=== PATIENT | female | born 1995 | race African-American/Black ===

== ENCOUNTER 2021-05-07 00:12 | Emergency (ER) | payer OTHER, SELFPAY ==
[2021-05-07 00:35] VITALS: BP 114/60; PULSE 90; RESP 16; TEMP 36.3; O2SAT 100; BMI 19.0
--- NOTE | 2021-05-07 04:53 | PC.NURSE ---
pt asked registration and charge nurse twice when she will be seen by provider. this nurse informed her that the doctor would see her as soon as possible but he has to see the most acute pts first. pt now stating that she wants to leave. has not been seen by provider yet. charge nurse aware
== END 2021-05-07 04:57 | disposition left against medical advice (07) ==
PROVIDERS: Emergency Provider Emergency Medicine
DX: M25.552 Pain in left hip (principal)
CPT/HCPCS: 99281; 99283

== ENCOUNTER 2021-09-23 19:32 | Inpatient (IN) | payer OTHER, SELFPAY ==
[2021-09-23 20:05] VITALS: BMI 17.2
[2021-09-23 20:20] VITALS: BP 134/87; PULSE 92; TEMP 36.8; O2SAT 97
--- NOTE | 2021-09-23 21:05 | P.HPPS_ITS ---
HPI Date of Service: 09/23/21 Chief Complaint: F41.1 Sources of Information: patient interviewed, chart reviewed and crisis/core team assessment reviewed HPI Subjective Notes: Romero Warning and Conditional Voluntary Healthcare Proxy: No Guardianship: No Medical Problems Affecting Mental Status: No Narrative: Pt is a 26 y.o. Female who does not have a previous psych history and presented to [facility] on 09/21/21 due to decompensation in self care, AH, and hyposomnia. Sh e refused CBC and CMP. Her urine preg and Covid screen were negative. Urine tox was negative for cocaine and opiates.? Per [facility] crisis eval, pt was found yelling and pacing. She reported being concern ed about her family touching her belongings and yelled to her family get out of my house. ? I evaluated the pt this evening and upon interview she reports she is in the hospital because her mother ?My mother made some statements that are completely false.? Says that she has had recent stressors of a close family friend/ father figure passing away, ?that took a toll on me,? and says she has been ?having issues at my job, im in the middle of leaving my job and trying to get into another job.? She signed a CV but says she doesnt think she needs to be here, ?I want to be working towards a new job.? She is perseverative about the location of her car and says that her mom took her car 3 days ago and she wants it back, plans to ?file a defamation suit? against her. Per pt, her mother has made false statements about her because she wants to keep her car, ?its all I can think of.? States her sleep has been ?all over the place,? attributes this to working nights, estimates she gets a total of 6 hours but that it is broken up throughout the day. Denies nightmares or flashbacks. Appetite has been low. Pt denies agitation or depression. Says she is ?Just trying to get through and pay my bills.? Denies A/VH. Denies SI/SIB/HI and says she feels safe. I spoke with pt?s mother, Reina. She reports pt ?had a breakdown? and has been self-dialoguing, talking to herself. Per pt?s mother, her aunt and uncle have also noticed pt has been behaving bizarrely, ?not making sense.? She also heard from pt?s hse manager, who reported to her that 2 weeks ago pt was talking to herself, ?speaking erratically,? and when her hse manager asked her about this, pt told her she was hearing voices and that they were ?telling me to do something to you but i?m not gonna do it.? Mom decided to call crisis and police had to force pt out. Per mom, pt has been ?very hyper, manic, non-stop talking? and she has not been cleaning her room, eating or sleeping, ?I know she?s been up for days.? Mom reports that in 2017, pt had a similar episode of being ?extremely agitated? and ?upset,? insisted her mom take her to the hospital twice for an abrasion in her mouth, as ?she was concerned it was something major,? however says her symptoms were less severe and ?not so obvious like this situation.? Mom is unsure about pt?s social functioning, as she says ?she doesnt talk about her personal life anymore.? Mom states she has seen pt ?become sad? and ?ruddy seen her become anxious.? She has been isolating and ?wanting to be off by herself? and ?hiding from the family.? Mom denies that pt has been aggressive or violent and she is ?normally a very kind, gentle, sweet person.?? Lastly, mom reports pt called and texted her phone over 200 times because she wants her car back, however mom took it because she ?wasn?t safe to be out driving.?? Past Psychiatric History: -Per chart, pt had a similar episode in 2017 with pressured speech and agitation, however less severe. -Denies hx of past psych med trials, no OP psych services. Medical Evaluation Reviewed: Yes [facility] Family History: -M Uncle: diagnosed with schizophrenia Social History: -Pt lives in a house owned by her M aunt, who lives on the 1st floor. Pt lives on the third floor and shares the space with her M uncle. -Works as a residential counselor at [employer] Substance History: -Cannabis: 3 x a week Trauma History: -Recent loss of a family friend Diagnostics Vital Signs (24Hr): Vital Signs - 24 hr 09/23/21 20:20 Temperature 98.2 F Pulse Rate 92 Blood Pressure 134/87 Pulse Oximetry 97 BMI result Body Mass Index 17.2 Labs Results: 09/24/21 07:01 09/24/21 07:01 Meds/Allergies Meds Home Medications Acetaminophen (Acetaminophen 325 Mg Tablet) 650 mg PO Q6H PRN PRN Reason: Headache/Pain Mild Scale (1-3) Al Hydroxide/Mg Hydroxide (Magnesium Hydrox/Alum Hydrox 30 Ml Oral.Susp) 30 ml PO Q6H PRN PRN Reason: Heartburn/Nausea Albuterol Sulfate (Albuterol Sulfate 90 Mcg 8 Gm Inhaler) 2 puff INHALE Q4H PRN PRN Reason: dyspnea Hydroxyzine HCl (Hydroxyzine Hcl 25 Mg Tablet) 25 mg PO Q6H PRN PRN Reason: Anxiety Magnesium Hydroxide (Milk Of Magnesia 30 Ml Oral.Susp) 30 ml PO DAILY PRN PRN Reason: Constipation Olanzapine (Olanzapine 5 Mg Tablet) 5 mg PO Q6H PRN PRN Reason: agitation, psychosis Trazodone HCl (Trazodone Hcl 50 Mg Tablet) 50 mg PO BEDTIME PRN PRN Reason: Insomnia Allergies Allergies Allergy/AdvReac Type Severity Reaction Status Date / Time No Known Allergies Allergy Verified 05/07/21 00:35 Mental Status Exam Mental Status Exam Narrative: A&O except to situation. Unkempt, disheveled appearance, in hospital attire. Poor eye contact, inattentive. No Tics or Tremors. No abnormal involuntary movements. Calm, however guarded and difficult to engage. Speech is somewhat pressured, spontaneous with regular rate and rhythm, normal volume and prosody. No prolonged speech latency or dysarthria. Mood is ?good,? affect is anxious, incongruent. Denies SI/SIB/HI upon inquiry. Denies A/VH. Endorses paranoid d elusional thought content. Thoughts are perseverative on her car, nonlinear. No known cognitive or memory impairment. Insight/ Judgment poor. Assessment & Plan Assessment & Plan (1) Bipolar 1 disorder, manic, moderate: Status: Acute Code(s): F31.12 - Bipolar disorder, current episode manic without psychotic features, moderate Plan Pt is a 26 y.o. Female who does not have a previous psych history and presented to [facility] on 09/21/21 due to decompensation in self care, AH, and hyposomnia. Provisional diagnosis of bipolar I disorder, manic episode, however differential dx of schizoaffective do must be considered, as pt has been decompensating x a few weeks and has been isolating, asocial, and responding to internal stimuli. No previous psych treatment. Plan: Discussed starting a medication for anxiety, agitation, and paranoia, considering atypical agent- however pt says ?I would rather not.? She is adamant that she does not want a medication trial. Per pt?s mother, pt at baseline is med averse and is careful about what she consumes, has been a vegan for a few years.? Monitor response to medications. Monitor for safety in the milieu. Discharge on stabilization. Patient seen. Chart reviewed. Discussed with team. Obtain collateral contact info?as needed Reason for continued inpatient stay Substantial Risk for: rapid decompensation and med/psych decompensation
--- NOTE | 2021-09-23 23:21 | PC.ADMIT ---
THIS IS THE FIRST [facility] ADMISSION FOR THIS 26 YEAR OLD FEMALE. LEGAL: CV. DX: ALBERT. WAS REFERRED TO M3 BY [facility] VIA [facility]. NURSE TO NURSE AND COLLATERAL INFORMATION OBTAINED PRIOR TO ADMISSION. PATIENT SIGNED CV THEN REQUEST 3 DAY NOTICE. PATIENT DENIES NEED FOR HOSPITALIZATION BUT PRESENTS WITH BEHAVIORS OF AVOIDANCE AND WALKING AROUND STAFF AND PEERS USING A WIDE OF SPACE, FIDGETING AT JOHNNIES TOP AND CLOTHING, STUTTERING AND REPETITIVE SPEECH PATTERN. DENIES SI/HI AND STATES ''I'M HERE BECAUSE MY MOTHER MISS INTERPRETED ME'' DOES REPORT POOR SLEEP AND DIET AND MINIMIZES THIS. ''I CAN SLEEP 4-5 HOURS'' DOES REPORT WEIGHING SELF ''AT WORK REGULARLY'' ARMENDARIZ - BUT ENDORSED USING ''MAYBE EDIBLES'' ''I TAKE HEMP PILLS'' NO SIGNIFICANT MEDICAL ISSUES BUT REPORTS S/P COVID IN WHICH SHE HAD AN INHALER ORDERED FOR HER. CURRENT COVID -. REPORTS + PCP THROUGH [facility] BUT NOT PSYCH PROVIDERS. ORIENTED TO UNIT. SAFETY TOOL COMPLETED. TX PLAN INITIATED.
[2021-09-24 07:14] LABS: MANUAL DIFF FLAG NO
[2021-09-24 07:20] LABS: Basophils Absolute Auto 0.1 X10*3/uL (0.0-0.2); Basophils Percent Auto 1.1 % (0-2); Eosinophils Absolute Auto 0.1 X10*3/uL (0.0-0.4); Eosinophils Percent Auto 1.6 % (0-4); Hematocrit 40.1 % (37.0-47.0); Hemoglobin 13.7 g/dl (12.0-16.0); Imm Gran Abs Auto 0.01 X10*3/uL (0.00-0.03); Imm Gran Pct Auto 0.2 % (0.0-0.4); Lymphocytes Absolute Auto 2.2 X10*3/uL (1.2-4.9); Lymphocytes Percent Auto 39.9 % (20-40); Mean Corpuscular HGB Conc 34.2 g/dl (31.0-35.0); Mean Corpuscular Hemoglobin 28.3 pg (27.0-33.0); Mean Corpuscular Volume 82.9 fL (80.0-98.0); Mean Platelet Volume 9.9 fL (9.4-12.3); Monocytes Absolute Auto 0.5 X10*3/uL (0.1-1.2); Monocytes Percent Auto 9.8 % (2-11); Neutrophils Absolute Auto 2.6 x10*3/uL (2.0-8.3); Neutrophils Percent Auto 47.4 % (45-73); Platelet Count 326 X10*3/uL (160-400); Red Blood Count 4.84 X10*6/uL (4.20-5.50); Red Cell Distribution Width 12.5 % (11.0-16.0); White Blood Count 5.5 X10*3/uL (4.8-10.8)
[2021-09-24 08:04] LABS: Alanine Aminotransferase 8 U/L (0-31); Albumin Level 4.5 g/dL (3.5-5.0); Alkaline Phosphatase 39 U/L (39-117); Anion Gap 13 (12-20); Aspartate Amino Transferase 15 U/L (5-31); Bilirubin Total 0.3 mg/dL (0.0-1.0); Blood Urea Nitrogen 7 mg/dL (9-16); Calcium 9.5 mg/dL (8.4-10.2); Carbon Dioxide 24 mmol/L (22-29); Chloride 105 mmol/L (96-108); Cholesterol 147 mg/dL; Creatinine Clr Calc Pharmacy 85.7; Estimated Glomerular Filt Rate > 60; Glucose Fasting 76 mg/dL (60-99); HDL Cholesterol 50 mg/dL; LDL Cholesterol Calculated 79 mg/dl; Magnesium 2.3 mg/dL (1.6-2.6); Potassium 4.1 mmol/L (3.3-5.1); Sodium 138 mmol/L (135-145); Total Protein 7.2 g/dL (6.5-8.0); Triglycerides 90 mg/dL
[2021-09-24 08:14] LABS: Free T4 (Free Thyroxine) 1.01 ng/dL (0.71-1.85); Thyroid Stimulating Hormone 1.67 uIU/mL (0.32-4.0)
[2021-09-24 08:28] LABS: Estimated Average Glucose 100 mg/dL; Hemoglobin A1c % 5.1 %
[2021-09-24 10:01] VITALS: BP 114/78; PULSE 117; RESP 18; TEMP 36.6; O2SAT 98
--- NOTE | 2021-09-24 16:22 | HO.PSYCHPN ---
Subjective Subjective Date of Service: 09/24/21 Reason For Visit: F41.1 Interim History: Patient seen. Discussed in team. Patient reports she is here because my mother fabricated a story about me that is not true. She wanted my car. She has mental health issues. Patient presents as paranoid. She is pressured and irritable although not loud or aggressive. She says she doesn't want medications. Denies A/VH. Denies SI/SIB/HI and says she feels safe. Review of Systems Acute medical concerns: No Review of Systems Review of Systems CVS: No c/o chest pain, palpitations, no SOB TRANSPORTATION WORKER: No c/o dizziness, headache GI: No c/o Nausea, Vomiting, diarrhea, constipation or heartburn Mental Status Exam Mental Status Exam Narrative: A&O except to situation. Unkempt, disheveled appearance, in hospital attire. Poor eye contact, inattentive. No Tics or Tremors. No abnormal involuntary movements. Calm, however guarded and difficult to engage. Speech is somewhat pressured, spontaneous, normal volume and prosody. No prolonged speech latency or dysarthria. Mood is ?good,? affect is anxious, incongruent. Denies SI/SIB/HI upon inquiry. Denies A/VH. Endorses paranoid delusional thought content. Thoughts are perseverative on her car, nonlinear. No known cognitive or memory impairment. Insight/ Judgment poor. Diagnostics Vital Signs (24Hr): Vital Signs - 24 hr 09/24/21 10:01 09/24/21 20:26 Temperature 97.9 F 97.7 F Pulse Rate 117 H 83 Respiratory Rate 18 Blood Pressure 114/78 132/69 Pulse Oximetry 98 98 BMI result Body Mass Index 17.2 Labs Results: 09/24/21 07:01 09/24/21 07:01 Labs: Laboratory Results - last 48 hr 09/24/21 09/24/21 09/24/21 07:01 07:01 07:01 WBC 5.5 RBC 4.84 Hgb 13.7 Hct 40.1 MCV 82.9 MCH 28.3 MCHC 34.2 RDW 12.5 Plt Count 326 MPV 9.9 Immature Gran % (Auto) 0.2 Neut % (Auto) 47.4 Lymph % (Auto) 39.9 [place] % (Auto) 9.8 Eos % (Auto) 1.6 Baso % (Auto) 1.1 Lymph # (Auto) 2.2 [place] # (Auto) 0.5 Eos # (Auto) 0.1 Baso # (Auto) 0.1 Abs Immat Gran (auto) 0.01 Absolute Neuts (auto) 2.6 Absolute Nucleated RBC 0.000 Nucleated RBC % (auto) 0.0 Sodium 138 Potassium 4.1 Chloride 105 Carbon Dioxide 24 Anion Gap 13 BUN 7 L Creatinine 0.80 Estim Creat Clear Calc 85.7 Estimated GFR > 60 Fasting Glucose 76 Estimat Average Glucose 100 Hemoglobin A1c % 5.1 Calcium 9.5 Magnesium 2.3 Total Bilirubin 0.3 AST 15 ALT 8 Alkaline Phosphatase 39 Total Protein 7.2 Albumin 4.5 Triglycerides 90 Cholesterol 147 LDL Cholesterol, Calc 79 HDL Cholesterol 50 TSH 1.67 Free T4 1.01 Medications Medications Current Medications Acetaminophen (Acetaminophen 325 Mg Tablet) 650 mg PO Q6H PRN PRN Reason: Headache/Pain Mild Scale (1-3) Al Hydroxide/Mg Hydroxide (Magnesium Hydrox/Alum Hydrox 30 Ml Oral.Susp) 30 ml PO Q6H PRN PRN Reason: Heartburn/Nausea Albuterol Sulfate (Albuterol Sulfate 90 Mcg 8 Gm Inhaler) 2 puff INHALE Q4H PRN PRN Reason: dyspnea Hydroxyzine HCl (Hydroxyzine Hcl 25 Mg Tablet) 25 mg PO Q6H PRN PRN Reason: Anxiety Magnesium Hydroxide (Milk Of Magnesia 30 Ml Oral.Susp) 30 ml PO DAILY PRN PRN Reason: Constipation Olanzapine (Olanzapine 5 Mg Tablet) 5 mg PO Q6H PRN PRN Reason: agitation, psychosis Trazodone HCl (Trazodone Hcl 50 Mg Tablet) 50 mg PO BEDTIME PRN PRN Reason: Insomnia Allergies Allergies Allergy/AdvReac Type Severity Reaction Status Date / Time No Known Allergies Allergy Verified 05/07/21 00:35 Assessment & Plan Assessment & Plan (1) Bipolar 1 disorder, manic, moderate: Status: Acute Code(s): F31.12 - Bipolar disorder, current episode manic without psychotic features, moderate Plan Pt is a 26 y.o. Female who does not have a previous psych history and presented to [facility] on 09/21/21 due to decompensation in self care, AH, and hyposomnia. Provisional diagnosis of bipolar I disorder, manic episode, however differential dx of schizoaffective do must be considered, as pt has been decompensating x a few weeks and has been isolating, asocial, and responding to internal stimuli. No previous psych treatment. Plan: Discussed starting a medication for anxiety, agitation, and paranoia, considering atypical agent- however pt says ?I would rather not.? She is adamant that she does not want a medication trial. Per pt?s mother, pt at baseline is med averse and is careful about what she consumes, has been a vegan for a few years.? Monitor response to medications. Monitor for safety in the milieu. Discharge on stabilization. Patient seen. Chart reviewed. Discussed with team. Obtain collateral contact info?as needed 09/24/21: Refuses any medication interventions. I spent minutes with the patient and/or on the patient floor today, greater than?50% of which was spent counseling/coordinating care. Reason for contiued inpatient stay Substantial Risk for: inability to function and rapid decompensation
[2021-09-24 20:26] VITALS: BP 132/69; PULSE 83; TEMP 36.5; O2SAT 98
[2021-09-25 09:40] VITALS: BP 107/69; PULSE 91; RESP 18; TEMP 36.5; O2SAT 99
--- NOTE | 2021-09-25 13:03 | P.CNHOSGPS_ITS ---
History of Present Illness Data of Consult Service Date: 09/25/21 Requesting physician: Yoselin Delatorre Primary Care Provider: Unknown Physician HPI Routine medical H+ p for psych admission. No focal medical complaints save mild ezcema of palms Review of Systems Review of Systems: Denies CP Denies SOB Dwnies N/V/D Yes all other systems are reviewed and are negative PMFSH Social History Household Members: Family Household Members Other:: lives with aunt Housing: House Do you presently have visiting nurse or other home services: No Patient Tobacco Use Status: Never used Tobacco e-Cigarette/Vaping Use: Never Used Use of substances other than those prescribed or required for medical reasons: Yes Substance Use Type: Marijuana Substance Use Frequency: Occasionally Last Used Substance: Days (ago) Currently Displaying Signs/Symptoms of Drug Intoxication Withdrawal: No Any prior treatment program specific to substance use: No Have you been hit, kicked, punched, or otherwise hurt by someone within the past year? If so, by whom?: No Do you feel safe in your current relationship?: No Current Relationship Is there a partner from a previous relationship who is making you feel unsafe now?: No Are you made to feel afraid or neglected: No Spiritual Healthcare Practices: none identified Worship Healthcare Practices: none identified Cultural Healthcare Practices: none identfied Advance Directives: No Advance Directives Information Provided: No Do you have thoughts of harming others: None Do you have a plan to hurt others: No Plan Recently lost weight without trying: Yes How much weight loss: 2-13 pounds Eating poorly because of decreased appetite: Yes Nutrition screen score: 4 Nutrition Risks: No Nutritional Risk Patient : No : No Poor oral hygiene: No service: No Sexual orientation: Straight/Heterosexual Meds Allergies Allergy/AdvReac Type Severity Reaction Status Date / Time No Known Allergies Allergy Verified 05/07/21 00:35 Active Medications: Current Medications Acetaminophen (Acetaminophen 325 Mg Tablet) 650 mg PO Q6H PRN PRN Reason: Headache/Pain Mild Scale (1-3) Al Hydroxide/Mg Hydroxide (Magnesium Hydrox/Alum Hydrox 30 Ml Oral.Susp) 30 ml PO Q6H PRN PRN Reason: Heartburn/Nausea Albuterol Sulfate (Albuterol Sulfate 90 Mcg 8 Gm Inhaler) 2 puff INHALE Q4H PRN PRN Reason: dyspnea Hydroxyzine HCl (Hydroxyzine Hcl 25 Mg Tablet) 25 mg PO Q6H PRN PRN Reason: Anxiety Magnesium Hydroxide (Milk Of Magnesia 30 Ml Oral.Susp) 30 ml PO DAILY PRN PRN Reason: Constipation Olanzapine (Olanzapine 5 Mg Tablet) 5 mg PO Q6H PRN PRN Reason: agitation, psychosis Trazodone HCl (Trazodone Hcl 50 Mg Tablet) 50 mg PO BEDTIME PRN PRN Reason: Insomnia Home Medications Medication Instructions Recorded Confirmed Last Taken Type albuterol sulfate 90 mcg/actuation 2 puff INHALATION Q4H PRN 09/23/21 09/23/21 Unknown History aerosol inhaler (ProAir HFA) Results Labs CBC and Chem 7: 09/24/21 07:01 09/24/21 07:01 Assessment and Plan (1) Bipolar 1 disorder, manic, moderate: Status: Acute Plan Routine non-focal medical exam. No acute issues. Will order Diprolene ointment for palms BID prn. Please call if needed Physical Exam Vital Signs: Last Vital Signs Temp 97.7 F 09/25/21 09:40 Pulse 91 09/25/21 09:40 Resp 18 09/25/21 09:40 BP 107/69 09/25/21 09:40 Pulse Ox 99 09/25/21 09:40 BMI result Body Mass Index 17.2 Const General: cooperative and no acute distress Resp Effort & Inspection: normal respiratory effort Auscultation: clear to auscultation bilaterally, no crackles, no rales and no rhonchi Cardio Rate: regular rate Rhythm: regular rhythm Heart sounds: S1 normal heart sound present, S2 normal heart sound present and no murmurs GI Inspection: Yes normal to inspection Palpation (GI): Soft to palpation and nontender Auscultation: normal bowel sounds Neuro Cranial nerves: Yes CN's II-XII intact bilaterally Gait exam (Neuro): Normal gait present Motor exam (neuro): 5/5 motor strength present throughout Extrem General: Yes normal to inspection
--- NOTE | 2021-09-25 14:04 | P.PNPSI_ITS ---
Subjective Subjective Date of Service: 09/25/21 Reason For Visit: F41.1 Interim History: Patient seen. Discussed in team. Seen in the sensory room with the lights out eating lunch by herself. She had her back to the door. She reported she feels OK and that she slept well last night. She denies AH. Appears paranoid and preoccupied. She says she doesn't want medications. Denies A/VH. Denies SI/SIB/HI and says she feels safe. Review of Systems Review of Systems CVS: No c/o chest pain, palpitations, no SOB EARLY CHILDHOOD SPECIAL EDUCATOR: No c/o dizziness, headache GI: No c/o Nausea, Vomiting, diarrhea, constipation or heartburn Mental Status Exam Mental Status Exam Narrative: A&O except to situation. Unkempt, disheveled appearance, in hospital attire. Poor eye contact, inattentive. No Tics or Tremors. No abnormal involuntary movem ents. Calm, however guarded and difficult to engage. Speech is somewhat pressured, spontaneous, normal volume and prosody. No prolonged speech latency or dysarthria. Mood is ?good,? affect is anxious, incongruent. Denies SI/SIB/HI upon inquiry. Denies A/VH. Paranoid. Thoughts are perseverative on her car, nonlinear. No known cognitive or memory impairment. Insight/ Judgment poor. Diagnostics Vital Signs (24Hr): Vital Signs - 24 hr 09/24/21 20:26 09/25/21 09:40 Temperature 97.7 F 97.7 F Pulse Rate 83 91 Respiratory Rate 18 Blood Pressure 132/69 107/69 Pulse Oximetry 98 99 BMI result Body Mass Index 17.2 Labs Results: 09/24/21 07:01 09/24/21 07:01 Labs: Laboratory Results - last 48 hr 09/24/21 09/24/21 09/24/21 07:01 07:01 07:01 WBC 5.5 RBC 4.84 Hgb 13.7 Hct 40.1 MCV 82.9 MCH 28.3 MCHC 34.2 RDW 12.5 Plt Count 326 MPV 9.9 Immature Gran % (Auto) 0.2 Neut % (Auto) 47.4 Lymph % (Auto) 39.9 [place] % (Auto) 9.8 Eos % (Auto) 1.6 Baso % (Auto) 1.1 Lymph # (Auto) 2.2 [place] # (Auto) 0.5 Eos # (Auto) 0.1 Baso # (Auto) 0.1 Abs Immat Gran (auto) 0.01 Absolute Neuts (auto) 2.6 Absolute Nucleated RBC 0.000 Nucleated RBC % (auto) 0.0 Sodium 138 Potassium 4.1 Chloride 105 Carbon Dioxide 24 Anion Gap 13 BUN 7 L Creatinine 0.80 Estim Creat Clear Calc 85.7 Estimated GFR > 60 Fasting Glucose 76 Estimat Average Glucose 100 Hemoglobin A1c % 5.1 Calcium 9.5 Magnesium 2.3 Total Bilirubin 0.3 AST 15 ALT 8 Alkaline Phosphatase 39 Total Protein 7.2 Albumin 4.5 Triglycerides 90 Cholesterol 147 LDL Cholesterol, Calc 79 HDL Cholesterol 50 TSH 1.67 Free T4 1.01 Medications Medications Current Medications Acetaminophen (Acetaminophen 325 Mg Tablet) 650 mg PO Q6H PRN PRN Reason: Headache/Pain Mild Scale (1-3) Al Hydroxide/Mg Hydroxide (Magnesium Hydrox/Alum Hydrox 30 Ml Oral.Susp) 30 ml PO Q6H PRN PRN Reason: Heartburn/Nausea Albuterol Sulfate (Albuterol Sulfate 90 Mcg 8 Gm Inhaler) 2 puff INHALE Q4H PRN PRN Reason: dyspnea Hydroxyzine HCl (Hydroxyzine Hcl 25 Mg Tablet) 25 mg PO Q6H PRN PRN Reason: Anxiety Magnesium Hydroxide (Milk Of Magnesia 30 Ml Oral.Susp) 30 ml PO DAILY PRN PRN Reason: Constipation Olanzapine (Olanzapine 5 Mg Tablet) 5 mg PO Q6H PRN PRN Reason: agitation, psychosis Trazodone HCl (Trazodone Hcl 50 Mg Tablet) 50 mg PO BEDTIME PRN PRN Reason: Insomnia Allergies Allergies Allergy/AdvReac Type Severity Reaction Status Date / Time No Known Allergies Allergy Verified 05/07/21 00:35 Assessment & Plan Assessment & Plan (1) Bipolar 1 disorder, manic, moderate: Status: Acute Code(s): F31.12 - Bipolar disorder, current episode manic without psychotic features, moderate Plan Pt is a 26 y.o. Female who does not have a previous psych history and [place] [facility] on [place] due to decompensation in self care, AH, and hyposomnia. Provisional diagnosis of bipolar I disorder, manic episode, however differential dx of schizoaffective do must be considered, as pt has been decompensating x a few weeks and has been isolating, asocial, and responding to internal stimuli. N o previous psych treatment. Plan: Discussed starting a medication for anxiety, agitation, and paranoia, considering atypical agent- however pt says ?I would rather not.? She is adamant that she does not want a medication trial. Per pt?s mother, pt at baseline is med averse and is careful about what she consumes, has been a vegan for a few years.? Monitor response to medications. Monitor for safety in the milieu. Discharge on stabilization. Patient seen. Chart reviewed. Discussed with team. Obtain collateral contact info?as needed 09/24/21: Refuses any medication interventions. 09/25 No change I spent minutes with the patient and/or on the patient floor today, greater than?50% of which was spent counseling/coordinating care. Reason for contiued inpatient stay Substantial Risk for: inability to function and rapid decompensation
[2021-09-25 18:00] VITALS: BP 114/57; PULSE 90; RESP 16; TEMP 37.1; O2SAT 99
[2021-09-26 04:12] LABS: Folate 15.4 ng/mL (> or = 4.0); Vitamin B12 298 pg/mL (200-900)
[2021-09-26 11:04] VITALS: BP 116/57; PULSE 129; RESP 18; TEMP 37.1; O2SAT 99
--- NOTE | 2021-09-26 14:18 | P.PNPSI_ITS ---
Subjective Subjective Date of Service: 09/26/21 Reason For Visit: F41.1 Subjective Notes: Conditional Voluntary and 3 Day Interim History: Pt somewhat guarded, and insisting on mother lying about her. She reports is not true that she was having hallucinations or suicidal. Pt insists that she has not notice any changes in her behavior nor mood. She reports she was eating and sleeping well. 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 When asked who she trusts, pt can't identify a person who she would trust. Pt reports she lives in house with aunt and uncle but now worries that they may say things about her that are not truth and even wonders if she should report back there. When asked about co worker- pt also suspicious about them but no clear reason why. She denies SI/HI. She reports she does not want any medications. She goes on about her mother and whether she should seek legal action against her mother for defamation. She also denies VH/AH- but appears very guarded. Per nursing, pt mostly in sensory room, disheveled, no behavioral concerns. Medication Compliance: No Attending Groups: No Review of Systems Acute medical concerns: No Review of Systems Review of Systems Denies CP Denies SOB Dwnies N/V/D Yes all other systems are reviewed and are negative Mental Status Exam Mental Status Exam Narrative: A&O except to situation. Unkempt, disheveled appearance, in hospital attire. Poor eye contact, inattentive. No Tics or Tremors. No abnormal involuntary movements. Calm, however guarded and difficult to engage. Speech is somewhat pressured, spontaneous, normal volume and prosody. No prolonged speech latency or dysarthria. Mood is ?good,? affect is anxious/suspicious, incongruent. Denies SI/SIB/HI upon inquiry. Denies A/VH. Paranoid. Thoughts are perseverative on her car, her mother defamation about her. No known cognitive or memory impairment. Insight/ Judgment poor. Diagnostics Vital Signs (24Hr): Vital Signs - 24 hr 09/25/21 18:00 09/26/21 11:04 Temperature 98.7 F 98.7 F Pulse Rate 90 129 H Respiratory Rate 16 18 Blood Pressure 114/57 L 116/57 L Pulse Oximetry 99 99 BMI result Body Mass Index 17.2 Labs Results: 09/24/21 07:01 09/24/21 07:01 Labs: Laboratory Results - last 48 hr 09/24/21 07:01 Vitamin B12 298 Folate 15.4 Medications Medications Current Medications Acetaminophen (Acetaminophen 325 Mg Tablet) 650 mg PO Q6H PRN PRN Reason: Headache/Pain Mild Scale (1-3) Al Hydroxide/Mg Hydroxide (Magnesium Hydrox/Alum Hydrox 30 Ml Oral.Susp) 30 ml PO Q6H PRN PRN Reason: Heartburn/Nausea Albuterol Sulfate (Albuterol Sulfate 90 Mcg 8 Gm Inhaler) 2 puff INHALE Q4H PRN PRN Reason: dyspnea Betamethasone Dipropion Augmented (Betamethasone Dip Aug 0.05% Cr 15 Gm Tube) 1 appl TOPICAL BID PRN; Protocol PRN Reason: Itching Hydroxyzine HCl (Hydroxyzine Hcl 25 Mg Tablet) 25 mg PO Q6H PRN PRN Reason: Anxiety Magnesium Hydroxide (Milk Of Magnesia 30 Ml Oral.Susp) 30 ml PO DAILY PRN PRN Reason: Constipation Olanzapine (Olanzapine 5 Mg Tablet) 5 mg PO Q6H PRN PRN Reason: agitation, psychosis Trazodone HCl (Trazodone Hcl 50 Mg Tablet) 50 mg PO BEDTIME PRN PRN Reason: Insomnia Allergies Allergies Allergy/AdvReac Type Severity Reaction Status Date / Time No Known Allergies Allergy Verified 05/07/21 00:35 Assessment & Plan Assessment & Plan (1) Bipolar 1 disorder, manic, moderate: Status: Acute Code(s): F31.12 - Bipolar disorder, current episode manic without psychotic features, moderate Plan Ms. Shannon is a 26 year-old woman with no prior psych hx who was brought to [facility] due to disorganized behaviors. On the unut, pt appears suspicious, guarded, hyperverbal at times, reports mother lying about her. But also suspicious about others. We discussed risks, benefits and alternative treatment options. Pt declines any medication at this time. Pt informed medication can be offered but can decline. 3day- exp 09/28, 15 mins checks for safety. can add risperidone- pt can decline. obtain collateral information aftercare planning. I spent __25____ minutes with the patient and/or on the patient floor today, greater than?50% of which was spent counseling/coordinating care. Reason for contiued inpatient stay Substantial Risk for: inability to function
[2021-09-26 16:06] VITALS: BMI 17.2
--- NOTE | 2021-09-26 16:13 | MHC.CLN ---
NUTRITION CONSULT FOR WEIGHT LOSS. REGULAR DIET. REPORTS GRADUAL WEIGHT LOSS. WEIGHT LOSS -9.5% X 5 MONTHS. REPORTS GOOD APPETITE AND EATING WELL. PREFERS TO FOLLOW VEGAN DIET BUT WILL EAT OTHER FOODS. STATED THAT ABLE TO MAKE FOOD CHOICES ON MENU. DOES NOT WANT NUTRITIONAL SUPPLEMENT.
[2021-09-27 06:00] VITALS: BP 119/58; PULSE 76; RESP 16; TEMP 37; O2SAT 99
--- NOTE | 2021-09-27 13:14 | HO.PSYCHPN ---
Subjective Subjective Date of Service: 09/27/21 Reason For Visit: F41.1 Interim History: pt presents as tangential, pressured, disorganized. intent on discharging, declines medications. MD makes the case for her mental illness and benefits of trying medication and informs her he will be prescribing lithium and she may refuse if she likes. focused on belief that her mother is somehow sabotaging her or antagonistic toward her. 3-day up tomorrow. i've just been having confusion. per staff, refused morning and evening meds. bizarre, guarded, perseverative. slept well overnight. Mental Status Exam Mental Status Exam Narrative: Unkempt, disheveled appearance, in hospital attire. fair eye contact, attentive. No Tics or Tremors. No abnormal involuntary movements. Calm, however guarded and difficult to engage. Speech is somewhat pressured, spontaneous, normal volume and prosody. No prolonged speech latency or dysarthria. Mood is ?fine,? affect is anxious/suspicious, incongruent. Denies SI/SIB/HI upon inquiry. Denies A/VH. Paranoid. Thoughts are perseverative on her car, her mother defamation about her. No known cognitive or memory impairment. Insight/ Judgment poor. Diagnostics Vital Signs (24Hr): BMI result Body Mass Index 17.2 Labs Results: 09/24/21 07:01 09/24/21 07:01 Labs: Laboratory Results - last 48 hr 09/24/21 07:01 Vitamin B12 298 Folate 15.4 Medications Medications Current Medications Acetaminophen (Acetaminophen 325 Mg Tablet) 650 mg PO Q6H PRN PRN Reason: Headache/Pain Mild Scale (1-3) Al Hydroxide/Mg Hydroxide (Magnesium Hydrox/Alum Hydrox 30 Ml Oral.Susp) 30 ml PO Q6H PRN PRN Reason: Heartburn/Nausea Albuterol Sulfate (Albuterol Sulfate 90 Mcg 8 Gm Inhaler) 2 puff INHALE Q4H PRN PRN Reason: dyspnea Betamethasone Dipropion Augmented (Betamethasone Dip Aug 0.05% Cr 15 Gm Tube) 1 appl TOPICAL BID PRN; Protocol PRN Reason: Itching Hydroxyzine HCl (Hydroxyzine Hcl 25 Mg Tablet) 25 mg PO Q6H PRN PRN Reason: Anxiety [place] Carbonate ([place] Carbonate Er 300 Mg Tablet.Er) 300 mg PO BID KIM Magnesium Hydroxide (Milk Of Magnesia 30 Ml Oral.Susp) 30 ml PO DAILY PRN PRN Reason: Constipation Olanzapine (Olanzapine 5 Mg Tablet) 5 mg PO Q6H PRN PRN Reason: agitation, psychosis Risperidone (Risperidone 1 Mg Tablet) 1 mg PO BID [facility] Last Admin: 09/27/21 08:51 Dose: Not Given Documented by: Trazodone HCl (Trazodone Hcl 50 Mg Tablet) 50 mg PO BEDTIME PRN PRN Reason: Insomnia Allergies Allergies Allergy/AdvReac Type Severity Reaction Status Date / Time No Known Allergies Allergy Verified 05/07/21 00:35 Assessment & Plan Assessment & Plan (1) Bipolar 1 disorder, manic, moderate: Status: Acute Code(s): F31.12 - Bipolar disorder, current episode manic without psychotic features, moderate Plan Ms. Shannon is a 26 year-old woman with no prior psych hx who was brought to hospital due to disorganized behaviors. On the unut, pt appears suspicious, guarded, hyperverbal at times, reports mother lying about her. But also suspicious about others. We discussed risks, benefits and alternative treatment options. Pt declines any medication at this time. Pt informed medication can be offered but can decline. 3day- exp 09/28, 15 mins checks for safety. risperidone - pt can decline. lithium - pt can decline. aftercare planning. likely discharge 09/28. I spent minutes with the patient and/or on the patient floor today, greater than?50% of which was spent counseling/coordinating care. Reason for contiued inpatient stay Substantial Risk for: inability to function and rapid decompensation
[2021-09-27 18:00] VITALS: BP 125/64; PULSE 81; RESP 16; TEMP 37; O2SAT 100
[2021-09-28 08:05] VITALS: BP 112/57; PULSE 93; RESP 16; TEMP 36.8; O2SAT 100
--- NOTE | 2021-09-28 11:47 | PC.NURSE ---
Martha is alert, oriented to day, date, time, pleasant and cooperative with discharge process. She denies ideation, plan or intent to harm self or others. She denies perceptual disturbance. She denies physical complaint.
--- NOTE | 2021-09-28 11:59 | P.DS_ITS ---
DS: Providers Provider Date of Service: 09/28/21 Date of admission: 09/23/21 19:32 Primary care physician: Unknown Physician Consults: 09/23/21 21:10 Consult to Hospitalist Routine Consulting Provider: Hospitalist Reason For Exam: New admit from [facility] [place]: Diagnosis Discharge Diagnosis (1) Bipolar 1 disorder, manic, moderate: Status: Acute DS: Medications Discharge Medications Home Medications: Home Medications Medication Instructions Recorded Confirmed albuterol sulfate 90 mcg/actuation 2 puff INHALATION Q4H PRN 09/23/21 09/23/21 aerosol inhaler (ProAir HFA) Mental Status Exam Mental Status Exam Narrative: Unkempt, disheveled appearance, in hospital attire. fair eye contact, attentive. No Tics or Tremors. No abnormal involuntary movements. Calm, however guarded and difficult to engage. Speech is somewhat pressured, spontaneous, normal volume and prosody. No prolonged speech latency or dysarthria. Mood is ?good,? affect is constricted. Denies SI/SIB/HI upon inquiry. Denies A/VH. Paranoid. Thoughts are sig for paranoid delusions. No known cognitive or memory impairment. Insight/ Judgment poor. Data Data Completed and Pending Completed studies during hospitalization [Text1]: 09/24/21 09/24/21 09/24/21 07:01 07:01 07:01 WBC 5.5 RBC 4.84 Hgb 13.7 Hct 40.1 MCV 82.9 MCH 28.3 MCHC 34.2 RDW 12.5 Plt Count 326 MPV 9.9 Immature Gran % (Auto) 0.2 Neut % (Auto) 47.4 Lymph % (Auto) 39.9 [place] % (Auto) 9.8 Eos % (Auto) 1.6 Baso % (Auto) 1.1 Lymph # (Auto) 2.2 [place] # (Auto) 0.5 Eos # (Auto) 0.1 Baso # (Auto) 0.1 Abs Immat Gran (auto) 0.01 Absolute Neuts (auto) 2.6 Absolute Nucleated RBC 0.000 Nucleated RBC % (auto) 0.0 Sodium 138 Potassium 4.1 Chloride 105 Carbon Dioxide 24 Anion Gap 13 BUN 7 L Creatinine 0.80 Estim Creat Clear Calc 85.7 Estimated GFR > 60 Fasting Glucose 76 Estimat Average Glucose 100 Hemoglobin A1c % 5.1 Calcium 9.5 Magnesium 2.3 Total Bilirubin 0.3 AST 15 ALT 8 Alkaline Phosphatase 39 Total Protein 7.2 Albumin 4.5 Triglycerides 90 Cholesterol 147 LDL Cholesterol, Calc 79 HDL Cholesterol 50 Vitamin B12 Folate TSH 1.67 Free T4 1.01 09/24/21 07:01 WBC RBC Hgb Hct MCV MCH MCHC RDW Plt Count MPV Immature Gran % (Auto) Neut % (Auto) Lymph % (Auto) [place] % (Auto) Eos % (Auto) Baso % (Auto) Lymph # (Auto) [place] # (Auto) Eos # (Auto) Baso # (Auto) Abs Immat Gran (auto) Absolute Neuts (auto) Absolute Nucleated RBC Nucleated RBC % (auto) Sodium Potassium Chloride Carbon Dioxide Anion Gap BUN Creatinine Estim Creat Clear Calc Estimated GFR Fasting Glucose Estimat Average Glucose Hemoglobin A1c % Calcium Magnesium Total Bilirubin AST ALT Alkaline Phosphatase Total Protein Albumin Triglycerides Cholesterol LDL Cholesterol, Calc HDL Cholesterol Vitamin B12 298 Folate 15.4 TSH Free T4 DS: Summary Hospital Course Hospital Course: per 09/23 admission note: Pt is a 26 y.o. Female who does not have a previous psych history and presented to [facility] on 09/21/21 due to decompensation in self care, AH, and hyposomnia. She refused CBC and CMP. Her urine preg and Covid screen were negative. Urine tox was negative for cocaine and opiates.? Per [facility] crisis eval, pt was found yelling and pacing. She reported being concerned about her family touching her belongings and yelled to her family get out of my house. ? I evaluated the pt this evening and upon interview she reports she is in the hospital because her mother ?My mother made some statements that are completely false.? Says that she has had recent stressors of a close family friend/ father figure passing away, ?that took a toll on me,? and says she has been ?having issues at my job, im in the middle of leaving my job and trying to get into another job.? She signed a CV but says she doesnt think she needs to be here, ?I want to be working towards a new job.? She is perseverative about the location of her car and says that her mom took her car 3 days ago and she wants it back, plans to ?file a defamation suit? against her. Per pt, her mother has made false statements about her because she wants to keep her car, ?its all I can think of.? States her sleep has been ?all over the place,? attributes this to working nights, estimates she gets a total of 6 hours but that it is broken up throughout the day. Denies nightmares or flashbacks. Appetite has been low. Pt denies agitation or depression. Says she is ?Just trying to get through and pay my bills.? Denies A/VH. Denies SI/SIB/HI and says she feels safe. I spoke with pt?s mother, Reina. She reports pt ?had a breakdown? and has been self-dialoguing, talking to herself. Per pt?s mother, her aunt and uncle have also noticed pt has been behaving bizarrely, ?not making sense.? She also heard from pt?s renewals manager, who reported to her that 2 weeks ago pt was talking to herself, ?speaking erratically,? and when her renewals manager asked her about this, pt told her she was hearing voices and that they were ?telling me to do something to you but i?m not gonna do it.? Mom decided to call crisis and police had to force pt out. Per mom, pt has been ?very hyper, manic, non-stop talking? and she has not been cleaning her room, eating or sleeping, ?I know she?s been up for days.? Mom reports that in 2017, pt had a similar episode of being ?extremely agitated? and ?upset,? insisted her mom take her to the hospital twice for an abrasion in her mouth, as ?she was concerned it was something major,? however says her symptoms were less severe and ?not so obvious like this situation.? Mom is unsure about pt?s social functioning, as she says ?she doesnt talk about her personal life anymore.? Mom states she has seen pt ?become sad? and ?ruddy seen her become anxious.? She has been isolating and ?wanting to be off by herself? and ?hiding from the family.? Mom denies that pt has been aggressive or violent and she is ?normally a very kind, gentle, sweet person.?? Lastly, mom reports pt called and texted her phone over 200 times because she wants her car back, however mom took it because she ?wasn?t safe to be out driving.?? Past Psychiatric History: -Per chart, pt had a similar episode in 2017 with pressured speech and agitation, however less severe.? -Denies hx of past psych med trials, no OP psych services. Medical Evaluation Reviewed: Yes [facility] Family History: -M Uncle: diagnosed with schizophrenia Social History: -Pt lives in a house owned by her M aunt, who lives on the 1st floor. Pt lives on the third floor and shares the space with her M uncle. -Works as a residential counselor at [employer] Substance History: -Cannabis: 3 x a week Trauma History: -Recent loss of a family friend 09/24: Patient reports she is here because my mother fabricated a story about me that is not true. She wanted my car. She has mental health issues.? Patient presents as paranoid. She is pressured and irritable although not loud or aggressive. Sh e says she doesn't want medications. Denies A/VH. Denies SI/SIB/HI and says she feels safe. 09/25: Seen in the sensory room with the lights out eating lunch by herself. She had her back to the door. She reported she feels OK and that she slept well last night. She denies AH. Appears paranoid and preoccupied. She says she doesn't want medications. Denies A/VH. Denies SI/SIB/HI and says she feels safe. 09/26: Pt somewhat guarded, and insisting on mother lying about her. She reports is not true that she was having hallucinations or suicidal. Pt insists that she has not notice any changes in her behavior nor mood. She reports she was eating and sleeping well. 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 When asked who she trusts, pt can't identify a person who she would trust. Pt reports she lives in house with aunt and uncle but now worries that they may say things about her that are not truth and even wonders if she should report back there. When asked about co worker- pt also suspicious about them but no clear reason why. She denies SI/HI. She reports she does not want any medications. She goes on about her mother and whether she should seek legal action against her mother for defamation. She also denies VH/AH- but appears very guarded. Per nursing, pt mostly in sensory room, disheveled, no behavioral concerns. 09/27: pt presents as tangential, pressured, disorganized.? intent on discharging, declines medications.? makes the case for her mental illness and benefits of trying medication and informs her he will be prescribing lithium and she may refuse if she likes.? focused on belief that her mother is somehow sabotaging her or antagonistic toward her.? 3-day up tomorrow.? i've just been having confusion. ? per staff, refused morning and evening meds.? bizarre, guarded, perseverative.? slept well overnight. 09/28: as per yesterday. denies any safety concerns, still wants to discharge today. per staff, 3-day notice matures today. continues to refuse meds. withdrawn, declined staff contact last noc. denies SI/HI/AVH/dep/anx. stated, i'm having a really good day, i don't need to talk. Ms. Shannon is a 26 year-old woman with no prior psych hx who was brought to hospital due to disorganized behaviors. On the unuit, pt appears suspicious, guarded, hyperverbal at times, reports mother lying about her. But also suspicious about others. We discussed risks, benefits and alternative treatment options. Pt declines any medication at this time. Pt informed medication can be offered but can decline. 3day- exp 09/28, 15 mins checks for safety. risperidone - pt declined. lithium - pt declined. aftercare planning in place. discharged 09/28 at maturation of 3-day notice. Time Spent with Patient Time attestation: Total time spent providing and/or coordinating discharge services: Discharge Plan Discharge Patient Disposition: Home, Self-Care Discharge Diagnosis: Bipolar I Disorder, Most Recent Episode Manic Referrals: [facility] [Other] - 1 Week ([facility] No PCP assigned pt needs to call clinic to schedule appt.) Outpatient Therapy & Psychiatry [Other] - 1 Week (Please contact the above location if you change your mind regarding outpatient treatment. ) Discharge Medications: Continued albuterol sulfate [ProAir HFA] 90 mcg/actuation HFA aerosol inhaler 2 puff inhalation Q4H PRN (Reason: dyspnea) 0RF Discharge Orders: Discharge Order (Routine); Ordered 09/28/21 Ordered By: Lloyd Lee Diet: advance to usual diet Activity on Discharge: As tolerated Stand Alone Forms: Patient Portal Discharge page Care Plan Goals: maintain independent living in the outpatient treatment setting. Health Concerns: none Plan of Treatment: attend appointments with mental health providers as recommended. the use of mood stabilizing medication is strongly recommended. Assessment: not at imminent risk of harm to self or others. Discharge Date/Time: 09/28/21 12:59
== END 2021-09-28 12:59 | disposition home or self-care (01) | DRG 753 ==
PROVIDERS: Registered Nurse; Admitting Provider Psychiatry & Neurology Psychiatry; Visit Provider Psychiatry & Neurology Psychiatry
DX: F31.12 Bipolar disorder, current episode manic without psychotic features, moderate (principal); Z79.899 Other long term (current) drug therapy
CPT/HCPCS: 36415; 80053; 80061; 82607; 82746; 83036; 83735; 84439; 84443; 85025